=== PATIENT | male | born 1960 | race African-American/Black ===

== ENCOUNTER 2024-01-30 10:35 | Emergency (ER) | payer OTHER ==
[~2024-01-30] VITALS: Ht 180.3 cm; Wt 81.0 kg
[2024-01-30 10:40] VITALS: TEMP 98.3
[2024-01-30] MEDS: LIDOCAINE 1% 10 ML VIAL SQ ONE (12:27)
[2024-01-30] MEDS: PERTUSS(ACELL),DIPH,TET/PF 0.5 ML SYRINGE [ADULT] IM. ONE (12:28)
[2024-01-30] MEDS: BACITRACIN 0.9 GM PACKET OINTMENT TP ONE (12:28)
[2024-01-30] MEDS: IBUPROFEN 600 MG TABLET PO ONE (12:28)
[2024-01-30] MEDS: ACETAMINOPHEN 500 MG TABLET PO ONE (12:28)
[2024-01-30] MEDS: LIDOCAINE 2% 6 ML JELLY TP ONE (12:35)
[2024-01-30] MEDS ORDERED: BACI28.410 TP (14:52)
[2024-01-30] MEDS ORDERED: IBUP-1554 PO (14:52)
[2024-01-30] MEDS ORDERED: CEPH-558 PO (14:52)
[2024-01-30 15:00] VITALS: BP 140/76; PULSE 80; RESP 16; O2SAT 98
== END 2024-01-30 15:10 | disposition home or self-care (01) ==
LOC: EMS 10:35
DX: S01.81XA Laceration without foreign body of other part of head, initial encounter (principal); S13.4XXA Sprain of ligaments of cervical spine, initial encounter; F17.210 Nicotine dependence, cigarettes, uncomplicated; W21.05XA Struck by basketball, initial encounter; Y93.67 Activity, basketball; Y92.89 Other specified places as the place of occurrence of the external cause; Y99.8 Other external cause status
CPT/HCPCS: 99285; 70450; 72125; 90715; 90471; 12014; J3490

== ENCOUNTER 2024-03-08 04:54 | Emergency (ER) | payer OTHER ==
[~2024-03-08] VITALS: Ht 180.3 cm; Wt 81.8 kg
[~2024-03-08 04:54] MED LIST: BACI28.410 TP; CEPH-558 PO; IBUP-1554 PO
[2024-03-08 04:56] VITALS: TEMP 98.3
[2024-03-08 05:08] VITALS: BP 134/78; PULSE 86; RESP 15; O2SAT 100
== END 2024-03-08 05:15 | disposition home or self-care (01) ==
LOC: EMS 04:54
DX: S01.81XD Laceration without foreign body of other part of head, subsequent encounter (principal); F17.290 Nicotine dependence, other tobacco product, uncomplicated; Z48.02 Encounter for removal of sutures; X58.XXXD Exposure to other specified factors, subsequent encounter
CPT/HCPCS: 99281; Z7502